=== PATIENT | female | born 1980 | race Caucasian/White ===

== ENCOUNTER 2018-01-10 00:35 | Emergency (ER) | payer SELFPAY ==
[2018-01-10] MEDS ORDERED: MEPERIDINE HCL 50 MG/ML AMP ONE (01:14)
[2018-01-10] MEDS ORDERED: NA CHLORIDE 0.9% 1,000 ML ONE (01:14)
[2018-01-10] MEDS ORDERED: ONDANSETRON 4 MG/2 ML VIAL ONE ×2 (01:14→03:09)
--- NOTE | 2018-01-10 01:39 | RAD REPORT ---
EXAM DESCRIPTION: RAD - Chest Single View - 01/10/2018 1:30 am CLINICAL HISTORY: CHEST PAIN Chest pain. COMPARISON: No comparisons FINDINGS: Portable technique limits examination quality. The lungs are grossly clear. The heart is upper limit of normal in size. No displaced fractures. IMPRESSION: No acute intrathoracic process suspected.
[2018-01-10 01:54] LABS: Absolute Lymphocytes (CBC) 3.3 K/uL (0.7-4.9); Absolute Monocytes 0.5 K/uL (0.1-1.3); Absolute Neutrophil 5.2 K/uL (1.8-8.0); Eosinophils % 1.3 % (0-4.4); Hematocrit 41.1 % (36.0-45.0); Lymphocytes % 36.3 % (15.3-44.8); MCH 30.5 pg (27.0-35.0); MCV 88.2 fL (80-100); Monocytes % 5.5 % (3.3-12.3); RBC Red Blood Cell Count 4.66 M/uL (3.86-4.86)
[2018-01-10 02:09] LABS: ALT/SGPT 34 U/L (12-78); AST/SGOT 19 U/L (15-37); Albumin 3.6 g/dL (3.4-5.0); Alkaline Phosphatase 55 U/L (45-117); Amylase Level 45 U/L (25-115); BUN Blood Urea Nitrogen 15 mg/dL (7-18); Bicarbonate 29 mmol/L (21-32); Bilirubin Direct < 0.1 mg/dL (0-0.2); Bilirubin Total 0.2 mg/dL (0.2-1.0); Glucose Level 99 mg/dL (74-106); Lipase 126 U/L (73-393); Potassium 4.1 mmol/L (3.5-5.1); Protein, Total 7.2 g/dL (6.4-8.2); Sodium Level 141 mmol/L (136-145)
[2018-01-10 02:12] LABS: Urine Blood TRACE (NEG); Urine Glucose NEGATIVE (NEG); Urine Protein NEGATIVE (NEG); Urine pH 5.5 (5.0-7.0)
[2018-01-10 02:17] LABS: Urine Bacteria 20-50 /HPF (<20); Urine Culture Reflex Order REFLEXED; Urine RBC <5 /HPF (NONE SEEN)
--- NOTE | 2018-01-10 02:42 | RAD REPORT ---
EXAM DESCRIPTION: CTAbdomen Pelvis W Contrast - 01/10/2018 2:34 am CLINICAL HISTORY: Abdominal pain. ABD PAIN COMPARISON: No comparisons TECHNIQUE: Biphasic CT imaging of the abdomen and pelvis was performed with 100 ml non-ionic IV cont rast. All CT scans are performed using dose optimization technique as appropriate and may include automated exposure control or mA/KV adjustment according to patient size. FINDINGS: The lung bases are clear.Cholelithiasis suspected The liver, spleen, pancreas, adrenal glands and kidneys are within normal limits. No bowel obstruction, free air, free fluid or abscess. The appendix is normal. No evidence of signi ficant lymphadenopathy. No suspicious bony findings. IMPRESSION: No acute intra-abdominal or pelvic finding. Suspected cholelithiasis.
--- NOTE | 2018-01-10 03:02 | ER ---
Nurse's Notes [facility] Name: Klarissa Lamb Age: 37 yrs Sex: Female : 1980 Arrival Date: 01/10/2018 Time: 00:42 Bed 15 Private MD: Diagnosis: Right upper quadrant pain. Biliary colic Presentation: 01/10 00:44 Presenting complaint: Patient states: that at 1999 she started to have back pain. She fc attempted to rest and then at 2229 she started to have chest pain, tightness, right upper ABD pain and shortness of breath. Transition of care: patient was not received from another setting of care. Onset of symptoms was January 09, 2018 at 20:00. Risk Assessment: Do you want to hurt yourself or someone else? Patient reports no desire to harm self or others. Initial Sepsis Screen: Does the patient meet any 2 criteria?. Care prior to arrival: Medication(s) given: Tylenol #3 at 2230. 00:44 Method Of Arrival: Ambulatory 00:44 Acuity: DOROTEO 3 01:00 Initial Sepsis Screen: Does the patient have a suspected source of infection? No. bp Patient's initial sepsis screen is negative. 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 - Social history:: Smoking status: Patient uses tobacco products, smokes one-half pack cigarettes per day. - Ebola Screening: : Patient negative for fever greater than or equal to 101.5 degrees Fahrenheit, and additional compatible Ebola Virus Disease symptoms Patient denies exposure to infectious person Patient denies travel to an Ebola-affected area in the 21 days before illness onset. Screenin:46 Abuse screen: Denies threats or abuse. Nutritional screening: No deficits noted. fc Tuberculosis screening: No symptoms or risk factors identified. Fall Risk None identified. Assessment: 00:45 General: Appears distressed, uncomfortable, obese, Behavior is cooperative, appropriate bp for age, agitated, anxious. Pain: Complains of pain in back and abdomen. Neuro: Level of Consciousness is awake, alert, obeys commands, Oriented to person, place, time, situation, Appropriate for age. Cardiovascular: No deficits noted. Respiratory: Airway is patent Respiratory effort is even, unlabored, Respiratory pattern is regular, symmetrical. GI: Abdomen is obese, Abdomen is tender to palpation. : No signs and/or symptoms were reported regarding the genitourinary system. EENT: No deficits noted. Derm: No deficits noted. Musculoskeletal: Circulation, motion, and sensation intact. Range of motion: intact in all extremities. 02:00 Reassessment: CT COMPLETED, RESULTS PENDING. VS STABLE ON MONITOR. bp 03:14 Reassessment: PT D/C HOME VIA W/C WITH S/O, DX WITH BILIARY COLIC. bp Vital Signs: 00:44 BP 129 / 56; Pulse 67; Resp 18; Temp 97.9; Pulse Ox 99% ; Weight 127.01 kg (R); Height bp 5 ft. 5 in. (165.10 cm) (R); Pain 10/10; 02:00 BP 133 / 64; Pulse 51; Resp 16; Pulse Ox 99% ; bp 03:11 BP 122 / 58; Pulse 53; Resp 16; Pulse Ox 96% ; bp 00:44 Body Mass Index 46.60 (127.01 kg, 165.10 cm) bp ED Course: 00:42 Patient arrived in ED. bp 00:45 Triage completed. fc 00:46 Arm band placed on Patient placed in an exam room, on a stretcher. fc 00:46 Patient has correct armband on for positive identification. Placed in gown. Bed in low fc position. Call light in reach. 00:52 Ye Mendez, MARQUITA is Primary Nurse. bp 00:55 EKG done, by business technology professor. reviewed by Chet Laguerre MD. oe 00:57 Chet Laguerre MD is Attending Physician. pkl 01:29 X-ray completed. Portable x-ray completed in exam room. Patient tolerated procedure kw well. 01:30 XRAY CXR (1 view) In Process Unspecified. EDMS 01:30 Inserted saline lock: 20 gauge in left forearm, using aseptic technique. Blood bp collected. 02:06 Radiology exam delayed due to lab results not completed at this time. (BUN/Creatinine). kw1 02:[address] via wheelchair. kw1 02:34 CT Abd/Pelvis - W/Contrast In Process Unspecified. EDMS 03:01 Miguel Lynch MD is Referral Physician. pkl 03:15 No provider procedures requiring assistance completed. IV discontinued, intact, bp bleeding controlled, No redness/swelling at site. Pressure dressing applied. Administered Medications: 01:30 Drug: NS 0.9% 1000 ml Route: IV; Rate: 1000 ml; Site: right forearm; bp 03:32 Follow up: IV Status: Completed infusion; IV Intake: 1000ml bp 01:30 Drug: Demerol 50 mg Route: IVP; Site: right forearm; bp 03:02 Follow up: Response: No adverse reaction; Pain is decreased bp 01:30 Drug: Zofran 4 mg Route: IVP; Site: right forearm; bp 03:02 Follow up: Response: No adverse reaction; Pain is decreased bp 03:09 Drug: morphine 4 mg Route: IVP; Site: right forearm; bp 03:16 Follow up: Response: Pain is decreased bp 03:10 Drug: Zofran 4 mg Route: IVP; Site: right forearm; bp 03:16 Follow up: Response: Pain is decreased bp Intake: 03:32 IV: 1000ml; Total: 1000ml. bp Outcome: 03:01 Discharge ordered by MD. pkl 03:29 Discharged to home ambulatory, with family. bp 03:29 Condition: stable 03:29 Discharge instructions given to patient, Instructed on discharge instructions, follow up and referral plans. medication usage, Demonstrated understanding of instructions, follow-up care, medications, Prescriptions given X 2. 03:31 Patient left the ED. bp Addendum: 01/13/2018 18:09 Addendum: Culture Results: Positive urine culture. Bacteria is resistant to, has i w intermediate sensitivity, or is not tested against prescribed antibiotics. Report given to DUSTIN for further evaluation and then to kiln operator for follow up with patient. Phone call Attempt #1 pt did not answer, unable to leave voice mail. Signatures: Dispatcher [employer] EDIN Chet Laguerre MD MD pkl Chretien, Felicia, RN RN Raissa Byrne RN RN iw Whitley, Kimberlee kw Espinosa, Orlando oe Peltier, Brian, RN RN bp Wilhelm, Kimberly kw1 Corrections: (The following items were deleted from the chart) 01/10 00:52 00:44 127.01 kg Reported; Height 5 ft. 5 in. Reported; BMI: 46.5; Pain 03/25; fc bp
--- NOTE | 2018-01-10 03:02 | EDPHYS ---
Physician Documentation [facility] Name: Klarissa Lamb Age: 37 yrs Sex: Female : 1980 Arrival Date: 01/10/2018 Time: 00:42 Bed 15 Private MD: ED Physician Chet Laguerre HPI: 01/10 01:06 This 37 yrs old Female presents to ER via Ambulatory with unknown complaint. pkl 01:06 The patient presents with abdominal pain in the right upper quadrant. Onset: The pkl symptoms/episode began/occurred just prior to arrival, 5 hour(s) ago. The symptoms radiate to back. Associated signs and symptoms: Pertinent positives: shortness of breath. 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 - Social history:: Smoking status: Patient uses tobacco products, smokes one-half pack cigarettes per day. - Ebola Screening: : Patient negative for fever greater than or equal to 101.5 degrees Fahrenheit, and additional compatible Ebola Virus Disease symptoms Patient denies exposure to infectious person Patient denies travel to an Ebola-affected area in the 21 days before illness onset. ROS: 01:07 Eyes: Negative for injury, pain, redness, and discharge, ENT: Negative for injury, pkl pain, and discharge, Neck: Negative for injury, pain, and swelling, Cardiovascular: Negative for chest pain, palpitations, and edema. 01:07 Respiratory: Positive for shortness of breath. 01:07 Abdomen/GI: Positive for abdominal pain, nausea, of the right upper quadrant. 01:07 Back: Positive for pain at rest. 01:07 : Negative for urinary symptoms. 01:07 MS/extremity: Negative for acute changes. 01:07 Skin: Negative for rash. 01:07 Neuro: Negative for altered mental status. Exam: 01:07 Head/Face: Normocephalic, atraumatic. Eyes: Pupils equal round and reactive to light, pkl extra-ocular motions intact. Lids and lashes normal. Conjunctiva and sclera are non-icteric and not injected. Cornea within normal limits. Periorbital areas with no swelling, redness, or edema. ENT: Nares patent. No nasal discharge, no septal abnormalities noted. Tympanic membranes are normal and external auditory canals are clear. Oropharynx with no redness, swelling, or masses, exudates, or evidence of obstruction, uvula midline. Mucous membranes moist. Neck: Trachea midline, no thyromegaly or masses palpated, and no cervical lymphadenopathy. Supple, full range of motion without nuchal rigidity, or vertebral point tenderness. No Meningismus. Chest/axilla: Normal chest wall appearance and motion. Nontender with no deformity. No lesions are appreciated. Cardiovascular: Regular rate and rhythm with a normal S1 and S2. No gallops, murmurs, or rubs. Normal PMI, no JVD. No pulse deficits. Respiratory: Lungs have equal breath sounds bilaterally, clear to auscultation and percussion. No rales, rhonchi or wheezes noted. No increased work of breathing, no retractions or nasal flaring. 01:07 Abdomen/GI: Bowel sounds: normal, Palpation: soft, mild abdominal tenderness, in the epigastric area and right upper quadrant. 01:07 Back: Exam negative for acute changes. 01:07 : Exam negative for acute changes. 01:07 Musculoskeletal/extremity: Exam is negative for acute changes. 01:07 Skin: Exam negative for rash. 01:07 Neuro: Orientation: is normal, Mentation: is normal, Cranial nerves: grossly normal, Motor: is normal. Vital Signs: 00:44 BP 129 / 56; Pulse 67; Resp 18; Temp 97.9; Pulse Ox 99% ; Weight 127.01 kg (R); Height bp 5 ft. 5 in. (165.10 cm) (R); Pain 10/10; 02:00 BP 133 / 64; Pulse 51; Resp 16; Pulse Ox 99% ; bp 03:11 BP 122 / 58; Pulse 53; Resp 16; Pulse Ox 96% ; bp 00:44 Body Mass Index 46.60 (127.01 kg, 165.10 cm) bp MDM: 00:57 Patient medically screened. pkl 03:00 Data reviewed: vital signs, nurses notes, lab test result(s), radiologic studies, CT pkl scan. 01/10 01:02 Order name: Amylase, Serum pkl 01/10 01:02 Order name: Basic Metabolic Panel pkl 01/10 01:02 Order name: CBC with Diff; Complete Time: 02:00 pkl 01/10 01:02 Order name: Creatinine for Radiology; Complete Time: 02:00 pkl 01/10 01:02 Order name: Hepatic Function; Complete Time: 02:57 pkl 01/10 01:02 Order name: Lipase; Complete Time: 02:57 pkl 01/10 01:02 Order name: Urine Microscopic Only; Complete Time: 02:57 pkl 01/10 01:02 Order name: Amylase Level; Complete Time: 02:57 EDMS 01/10 01:02 Order name: Basic Metabolic Panel; Complete Time: 02:57 EDMS 01/10 01:03 Order name: CT Abd/Pelvis - W/Contrast; Complete Time: 02:57 pkl 01/10 01:07 Order name: D-Dimer; Complete Time: 02:57 pkl 01/10 01:24 Order name: Urine Dipstick--Ancillary (enter results); Complete Time: 02:57 ms 01/10 01:27 Order name: Urine --Ancillary (enter results); Complete Time: 02:57 ms 01/10 02:19 Order name: Urine Culture EDMS 01/10 01:02 Order name: IV Saline Lock; Complete Time: 01:37 pkl 01/10 01:02 Order name: Labs collected and sent; Complete Time: 01:37 pkl 01/10 01:02 Order name: Urine Dipstick-Ancillary (obtain specimen); Complete Time: 01:37 pkl 01/10 01:07 Order name: XRAY CXR (1 view); Complete Time: 02:00 pkl Administered Medications: 01:30 Drug: NS 0.9% 1000 ml Route: IV; Rate: 1000 ml; Site: right forearm; bp 03:32 Follow up: IV Status: Completed infusion; IV Intake: 1000ml bp 01:30 Drug: Demerol 50 mg Route: IVP; Site: right forearm; bp 03:02 Follow up: Response: No adverse reaction; Pain is decreased bp 01:30 Drug: Zofran 4 mg Route: IVP; Site: right forearm; bp 03:02 Follow up: Response: No adverse reaction; Pain is decreased bp 03:09 Drug: morphine 4 mg Route: IVP; Site: right forearm; bp 03:16 Follow up: Response: Pain is decreased bp 03:10 Drug: Zofran 4 mg Route: IVP; Site: right forearm; bp 03:16 Follow up: Response: Pain is decreased bp Disposition: 01/10/18 03:01 Discharged to Home. Impression: Right upper quadrant pain. Biliary colic. - Condition is Stable. - Prescriptions for Ultram 50 mg Oral Tablet - take 1 tablet by ORAL route every 6 hours As needed; 30 tablet. Cipro 500 mg Oral Tablet - take 1 tablet by ORAL route every 12 hours for 7 days; 14 tablet. - Medication Reconciliation Form, Thank You Letter, Antibiotic Education, Prescription Opioid Use form. - Follow up: Miguel Lynch MD; When: 2 - 3 days; Reason: Re-evaluation by your physician. - Problem is new. - Symptoms have improved. Signatures: Dispatcher [employer] EDMS Chet Laguerre MD MD pkl Eveline Forte RN RN Ye Mendez RN RN bp Corrections: (The following items were deleted from the chart) 03:31 03:01 01/10/2018 03:01 Discharged to Home. Impression: Right upper quadrant pain. bp Biliary colic. Condition is Stable. Forms are Medication Reconciliation Form, Thank You Letter, Antibiotic Education, Prescription Opioid Use. Follow up: Miguel Lynch; When: 2 - 3 days; Reason: Re-evaluation by your physician. Problem is new. Symptoms have improved. pkl
[2018-01-10] MEDS ORDERED: MORPHINE 4 MG/ML SYR ONE (03:09)
--- NOTE | 2018-01-10 07:16 | EKG ---
Test Date: 2018-01-10 Test Time: 00:48:15 Claim Professional: FRANCISCO J MEASUREMENT RESULTS: Intervals: Rate: 64 HI: 156 QRSD: 86 QT: 420 QTc: 433 [place]: P: 25 HI: 156 QRS: 8 T: 50 INTERPRETIVE STATEMENTS: Normal sinus rhythm Normal ECG No previous ECG available for comparison Electronically Signed On 01-10-18 07:15:42 CDT by Clint Parra
== END 2018-01-10 03:31 | disposition home or self-care (01) ==
LOC: ER 00:35
DX: K80.50 Calculus of bile duct without cholangitis or cholecystitis without obstruction (principal); F17.210 Nicotine dependence, cigarettes, uncomplicated
CPT/HCPCS: 36415; 71045; 74177; 80048; 80076; 81003; 81015; 81025; 82150; 83690; 85025; 85379; 87077; 87086; 87088; 87186; 93005; 96361; 96374; 96375; 99284; J2175; J2405; J7030; Q9967